=== PATIENT | male | born 1995 | race Caucasian/White ===

== ENCOUNTER 2022-05-21 08:17 | Inpatient (IN) ==
[2022-05-21] MEDS ORDERED: SODIUM CHLORIDE 0.9% 500 ML IV STA (08:34)
[2022-05-21] MEDS ORDERED: SODIUM CHLORIDE 0.9% 1000ML 1,000 ML IV ONE (08:39)
[2022-05-21] MEDS ORDERED: dilTIAZem HCl 5 MG/ML 5 ML VIAL IV STA (08:39)
--- NOTE | 2022-05-21 08:41 | Emergency Department Note ---
Impression & Plan Atrial fibrillation with rapid ventricular response ADMIT ED Provider Note HPI: The patient is a 26-year-old male who presents emergency department with a chief complaint of palpitations. Patient states that he woke up this morning and felt a sensation as if his heart was beating fast and irregularly. Patient denies any chest pain or shortness of breath. On arrival here to the ED the patient is noted to be in atrial fibrillation with a heart rate of 135, he is otherwise hemodynamically stable and saturating well on room air. Patient states he has not had any issues similar to this previously. 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 He admits to drinking a small amount of alcohol last night, states in general he does not binge drink. Arrival here to the ED the patient is tachycardic in the 130s but he is otherwise hemodynamically stable, denies any chest pain or shortness of breath. IV was established, lab work obtained, patient was placed on security system technician, patient was initially given a 15 mg bolus of diltiazem, this did result in good improvement of his rate into the 80s, he remained in atrial fibrillation. Patient was given IV fluids as well. Patient was observed while lab work resulted, troponin is negative, magnesium within normal limits, TSH within normal limits, potassium within normal limits. On my reassessment the patient remains in atrial fibrillation with rate now in the low 100s. I discussed the case with on-call cardiology, Dr. Ahn, recommended starting the patient on beta-gema therapy, recommends holding off on possible cardioversion at this time as the patient will be likely to spontaneously convert. Patient was given 5 mg bolus of metoprolol and rate did improve into the 80s once more. On my reassessment patient remains in atrial fibrillation now with good rate control, given that he remains in A. fib, I did discuss the case with the on-call hospitalist for [facility], Dr. Rocha, patient was admitted in stable condition for further care. * CRITICAL CARE TIME: ( 35 ) minutes -Management of tachyarrhythmia requiring IV medications for rate control, time spent at the bedside, interpretation of diagnostic studies, discussion with other physicians and arrangement of admission Diagnosis: 1. New onset atrial fibrillation 2. Atrial fibrillation with RVR Disposition: Admission Yvan Yu, Emergency Medicine Past Med/Surg History Surgical History History of total cystectomy History of wisdom tooth extraction Family History (Updated 10/07/21 @ 08:08 by Megan Mayer) Mother Stroke Prothrombin mutation Migraine Cat allergies Father Hypertension Thyroid disease Sister Prothrombin mutation Migraine Grandfather (Paternal) Lung cancer Other No family history of adverse response to anesthesia No family history of bleeding disorder Social History (Updated 10/07/21 @ 08:11 by Megan Mayer) Smoking Status: Never smoker Second Hand Exposure: No; Hx Alcohol Use: Yes Alcohol type: beer Alcohol Intake Frequency: 2-3 x/Week Alcohol Intake Frequency Comment: 2-3 drinks per week Hx Substance Use: No Visual Impairment: No Limitations Hearing Ability: Normal marital status: Single Current Living Situation: Significant Other Current Living Situation Comment: engaged-getting in February 26 current occupational status: employed 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 Happened when younger Home Meds Previous Rx's Medication Instructions Recorded azelastine 137 mcg (0.1 %) nasal 2 spray intranasal DAILY #30 mL 10/07/21 spray aerosol Results & Data (ED) Vital Signs Vital Signs - 24 hr 05/21/22 08:25 05/21/22 09:01 05/21/22 09:01 Temperature 36.8 C Temperature Source Temporal Artery Scan Pulse Rate 100 H Pulse Rate [Radial] Pulse Rhythm Pulse Rhythm [Radial] Pulse Strength [Radial] Respiratory Rate 16 Respiratory Effort / Characteristics Non-Labored Non-Labored Spontaneous Respiratory Depth Normal Normal Respiratory Pattern Regular Blood Pressure 119/75 Blood Pressure [Right Arm] Blood Pressure Mean 89 Blood Pressure Mean [Right Arm] Blood Pressure Position [Right Arm] Pulse Oximetry 98 98 Oxygen Delivery Method Room Air Room Air Room Air Sepsis Recent Fever Within 48 Hours No Sepsis New/Unexplained Change in Mental Status No Sepsis Action Taken by Nursing No Action Required 05/21/22 09:01 05/21/22 10:00 05/21/22 11:34 Temperature Temperature Source Pulse Rate 151 H 103 H Pulse Rate [Radial] 79 Pulse Rhythm Irregular Pulse Rhythm [Radial] Irregular Pulse Strength [Radial] Normal Respiratory Rate 20 16 Respiratory Effort / Characteristics Non-Labored Spontaneous Respiratory Depth Normal Respiratory Pattern Regular Blood Pressure 112/64 Blood Pressure [Right Arm] 114/73 Blood Pressure Mean Blood Pressure Mean [Right Arm] 86 Blood Pressure Position [Right Arm] Lying Pulse Oximetry 98 100 Oxygen Delivery Method Room Air Room Air Sepsis Recent Fever Within 48 Hours Sepsis New/Unexplained Change in Mental Status Sepsis Action Taken by Nursing Laboratory Data Result diagrams: 05/21/22 08:50 05/21/22 10:52 Lab Results 05/21/22 05/21/22 05/21/22 Range/Units 08:44 08:44 08:50 WBC 7.64 (4.8-10.8) K/ul RBC 5.13 (4.63-6.08) M/uL Hgb 15.4 (14.0-18.0) g/dl Hct 42.0 (40.1-51.0) % MCV 81.9 (80.0-100.0) fL MCH 30.0 (25.0-34.0) pg MCHC 36.7 H (32.0-36.0) g/dL RDW Std Deviation 34.3 L (36.4-46.3) fL RDW Coeff of [place] 11.6 (11.5-14.5) % Plt Count 279 (130-400) K/uL MPV 11.1 (9.4-12.4) fL Immature Gran % (Auto) 0.3 % Neut % (Auto) 46.0 % Lymph % (Auto) 41.5 % [place] % (Auto) 9.4 % Eos % (Auto) 2.0 % Baso % (Auto) 0.8 % Neut # (Auto) 3.52 (1.4-6.5) K/uL Lymph # (Auto) 3.17 (1.2-3.4) K/uL [place] # (Auto) 0.72 (0.24-0.82) K/uL Eos # (Auto) 0.15 (0-0.50) K/uL Baso # (Auto) 0.06 (0-0.2) K/uL Immature Gran # (Auto) 0.02 (0.00-0.02) K/uL Sodium TNP Potassium TNP Chloride 106 (98-107) mmol/L Carbon Dioxide 20 L (21-32) mmol/L Anion Gap TNP BUN 13 (6-23) mg/dl Creatinine 0.71 (0.6-1.4) mg/dl Est Cr Clr Drug Dosing 174.6 ml/min Est GFR ( Amer) > 150.0 ml/min Est GFR (Non-Af Amer) 130.4 ml/min BUN/Creatinine Ratio 18.3 (10-20) Glucose 106 H (70-99(Fasting)) mg/dl Calcium 10.0 (8.5-10.1) mg/dl Magnesium TNP Total Bilirubin 1.9 H (0.2-1.0) mg/dl AST TNP ALT 17 (7-52) U/L Alkaline Phosphatase 52 (34-104) U/L Troponin I High Sens 2.9 (0-20) pg/ml Total Protein 7.9 (6.0-8.3) gm/dl Albumin 5.1 H (3.4-5.0) gm/dl Globulin 2.8 (2.5-4.0) gm/dl Albumin/Globulin Ratio 1.8 (0.9-2) Lipase 18 (11-82) U/L TSH 1.357 (0.300-4.500) uIu/ml 05/21/22 Range/Units 10:52 WBC (4.8-10.8) K/ul RBC (4.63-6.08) M/uL Hgb (14.0-18.0) g/dl Hct (40.1-51.0) % MCV (80.0-100.0) fL MCH (25.0-34.0) pg MCHC (32.0-36.0) g/dL RDW Std Deviation (36.4-46.3) fL RDW Coeff of [place] (11.5-14.5) % Plt Count (130-400) K/uL MPV (9.4-12.4) fL Immature Gran % (Auto) % Neut % (Auto) % Lymph % (Auto) % [place] % (Auto) % Eos % (Auto) % Baso % (Auto) % Neut # (Auto) (1.4-6.5) K/uL Lymph # (Auto) (1.2-3.4) K/uL [place] # (Auto) (0.24-0.82) K/uL Eos # (Auto) (0-0.50) K/uL Baso # (Auto) (0-0.2) K/uL Immature Gran # (Auto) (0.00-0.02) K/uL Sodium 137 Potassium 4.7 Chloride (98-107) mmol/L Carbon Dioxide (21-32) mmol/L Anion Gap BUN (6-23) mg/dl Creatinine (0.6-1.4) mg/dl Est Cr Clr Drug Dosing ml/min Est GFR ( Amer) ml/min Est GFR (Non-Af Amer) ml/min BUN/Creatinine Ratio (10-20) Glucose (70-99(Fasting)) mg/dl Calcium (8.5-10.1) mg/dl Magnesium 1.7 Total Bilirubin (0.2-1.0) mg/dl AST 12 L ALT (7-52) U/L Alkaline Phosphatase (34-104) U/L Troponin I High Sens (0-20) pg/ml Total Protein (6.0-8.3) gm/dl Albumin (3.4-5.0) gm/dl Globulin (2.5-4.0) gm/dl Albumin/Globulin Ratio (0.9-2) Lipase (11-82) U/L TSH (0.300-4.500) uIu/ml Administered Medications Discontinued Medications Diltiazem HCl (Diltiazem Hcl 5 Mg/Ml 5 Ml Vial) 15 mg IV NOW STA Stop: 05/21/22 08:40 Last Admin: 05/21/22 08:48 Dose: 15 mg Documented By: CROW Co-signed By: STEPHENIE Sodium Chloride (Nss) 500 mls @ 999 mls/hr IV .Q31M STA Stop: 05/21/22 09:04 Last Infusion: 05/21/22 10:37 Dose: 0 mls/hr Documented By: Admin: 05/21/22 08:49 Dose: 999 mls/hr Documented By: CROW Sodium Chloride (Nss 1000ml) 1,000 mls @ 999 mls/hr IV .Q1H1M ONE Stop: 05/21/22 09:39 Last Infusion: 05/21/22 10:37 Dose: 0 mls/hr Documented By: Admin: 05/21/22 08:49 Dose: 999 mls/hr Documented By: RCOW Metoprolol Tartrate (Metoprolol Tartrate 1 Mg/Ml Vial) 5 mg IV NOW STA Stop: 05/21/22 11:27 Last Admin: 05/21/22 11:34 Dose: 5 mg Documented By: CROW Imaging Data Radiologist's Impression: Chest X-Ray 05/21/22 08:34 XR chest 1V portable CLINICAL HISTORY: Atypical chest pain. COMPARISON STUDY: No previous studies for comparison. FINDINGS: Lung volumes are normal. No consolidation is identified. Subtle density projects over the right lower lung There is no pneumothorax or pleural effusion. Cardiac size is normal. Mediastinal contours are normal. There is no evidence for pulmonary edema. IMPRESSION: 1. No acute cardiopulmonary findings. 2. Subtle density which projects over the right lower lung. Artifact is favored. ACT 112: Negative or not required by law. Electronically signed by: Aiden Valiente M.D. 05/21/2022 8:50 AM Discharge Plan Visit Data Chief Complaint: Shortness of Breath/Dyspnea Stated Complaint: AFIB, SOB ED Provider: Yvan Yu Discharge Problem: Atrial fibrillation with rapid ventricular response Patient Disposition: Admitted As Inpatient Forms Stand Alone Forms: [facility] Prescriptions Prescriptions: No Action azelastine 137 mcg (0.1 %) aerosol,spray 2 spray intranasal DAILY Qty: 30 3RF Referrals Referrals: Hayley Hidalgo MD [Primary Care Provider] -
--- NOTE | 2022-05-21 08:51 | XRay Report ---
XR chest 1V portable CLINICAL HISTORY: Atypical chest pain. COMPARISON STUDY: No previous studies for comparison. FINDINGS: Lung volumes are normal. No consolidation is identified. Subtle density projects over the r ight lower lung There is no pneumothorax or pleural effusion. Cardiac size is normal. Mediastinal con tours are normal. There is no evidence for pulmonary edema. IMPRESSION: 1. No acute cardiopulmonary findings. 2. Subtle density which projects over the right lower lung. Artifact is favored. ACT 112: Negative or not required by law. Electronically signed by: Aiden Valiente M.D. 05/21/2022 8:50 AM
[2022-05-21 09:07] LABS: Basophils # (auto) 0.06 K/uL (0-0.2); Basophils % (auto) 0.8 %; Eosinophils # (auto) 0.15 K/uL (0-0.50); Hemoglobin 15.4 g/dl (14.0-18.0); Immature Granulocytes # (auto) 0.02 K/uL (0.00-0.02); Immature Granulocytes % (auto) 0.3 %; Lymphocytes # (auto) 3.17 K/uL (1.2-3.4); Lymphocytes % (auto) 41.5 %; Mean Corpuscular Hgb Conc 36.7 g/dL (32.0-36.0); Mean Corpuscular Volume 81.9 fL (80.0-100.0); Mean Platelet Volume 11.1 fL (9.4-12.4); Monocytes # (auto) 0.72 K/uL (0.24-0.82); Monocytes % (auto) 9.4 %; Neutrophils # (auto) 3.52 K/uL (1.4-6.5); Platelet Count 279 K/uL (130-400); RDW Coefficient of Variation 11.6 % (11.5-14.5); RDW Standard Deviation 34.3 fL (36.4-46.3); Red Blood Count 5.13 M/uL (4.63-6.08); White Blood Count 7.64 K/ul (4.8-10.8)
[2022-05-21 10:33] LABS: Alanine Aminotransferase 17 U/L (7-52); Albumin Globulin Ratio 1.8 (0.9-2); Albumin Level 5.1 gm/dl (3.4-5.0); Alkaline Phosphatase 52 U/L (34-104); BUN Creatinine Ratio 18.3 (10-20); Bilirubin,Total 1.9 mg/dl (0.2-1.0); Blood Urea Nitrogen 13 mg/dl (6-23); Carbon Dioxide 20 mmol/L (21-32); Chloride 106 mmol/L (98-107); Creatinine Clr Calc Pharmacy 174.6 ml/min; Est GFR (African American) > 150.0 ml/min; Est GFR (Non-African American) 130.4 ml/min; Globulin 2.8 gm/dl (2.5-4.0); Glucose 106 mg/dl (70-99(Fasting)); Lipase 18 U/L (11-82); Total Protein 7.9 gm/dl (6.0-8.3)
[2022-05-21 11:14] LABS: Troponin I High Sensitivity 2.9 pg/ml (0-20)
[2022-05-21 11:22] LABS: Magnesium 1.7 mg/dl (1.7-2.4); Potassium 4.7 mmol/L (3.5-5.1)
[2022-05-21] MEDS ORDERED: METOPROLOL TARTRATE 1 MG/ML VIAL IV STA (11:26)
--- NOTE | 2022-05-21 12:04 | History & Physical Report ---
Date of Service May 21, 2022 Assessment & Plan (1) Atrial fibrillation with rapid ventricular response: Plan: - Symptom onset of palpitations, mild shortness of breath at 745 this a.m., a fib RVR detected by his apple watch. Patient was wearing an apple watch thr oughout the night last evening and at no point did it detect A. fib until this morning, so safe to say he has been in afib < 24 hours. - Present on initial eval in ED with HR 130-150s, now with HR [id number], remains in A. fib. - Did receive 15 mg IV diltiazem, and 70 g IV Lopressor in ED. - No apparent causes--only 1 alcoholic drink last evening and no history of alcohol use disorder, no infectious process or acute illness, electrolytes wnl, TSH wnl, no history of ADDY. - Who do hypercoagulable work-up given his family history of prothrombin gene mutation. - Will start patient on 25 mg metoprolol BID for now. - Lopressor 5mg IV prn ordered for HR > 120. - Will order K and Mg replacement to get K of 4.0, Mg 2.0. - Echo ordered. - Will start on Eliquis with first dose to be given in ED. - Should be d/c'd with 30 day mobile cardiac monitoring and to remain on anticoagulation until monitoring is complete and hypercoagulable panel has resulted. (2) Nasal septal deviation: Plan: - Continue azelastine nasal spray. (3) Family history of prothrombin gene mutation: Plan: - Hypercoag workup as above. Plan - Observation oernight in PCU. - SCDs, Eliquis for VTE ppx. - Full Code. History of Present Illness Chief Complaint: palpitations since 7:45 this AM Primary Care Provider: Hayley Hidalgo MD Ted Denson is a 26-year-old male with past medical history significant deviated nasal septum and family history of prothrombin gene mutation presenting today with complaints of palpitations. Last evening he went out to dinner with his and had 1 beer, later went home and played video games and felt he was in his normal state of health. No further alcohol consumption. This morning he woke up around 7:45 AM immediately felt a sensation of his heart racing. He wears an apple watch and did an ECG tracing which revealed he was in A. fib with HR of 150s at home. He presented to the ED for further evaluation and was found to be in A. fib RVR with rates in 130s. He was wearing his apple watch last evening and at no point did indicate he was in A. fib until this morning, so it is unlikely patient has been in A. fib for >24 hours. Is a family history of prothrombin gene mutation and his mom and sister, states his mom has had mini strokes and recently hospitalized for A. fib herself. He was supposed to have an outpatient hypercoagulability work-up done, but has not gotten around to doing this yet. He has not noticed any focal neurological deficits such as numbness weakness tingling, visual changes, or slurred speech. No prior history of A. fib, or other cardiac disease. Denies tobacco or drug use. - Other than being in A. fib RVR, his VS are wnl, he is hemodynamically stable, labs are completely unremarkable, his T bili is elevated at 1.9, no prior labs for reference. TSH within normal limits, no electrolyte abnormalities, without leukocytosis, troponin 2.9. Allergies Allergy/AdvReac Type Severity Reaction Status Date / Time amoxicillin AdvReac pt Verified 10/07/21 08:02 forgets. Happened when younger Home Medications Medication Instructions Recorded Confirmed Type azelastine 137 mcg (0.1 %) nasal 2 spray intranasal DAILY #30 mL 10/07/21 10/07/21 Rx spray aerosol Past Med/Surg History Medical History Hypertrophy of both inferior nasal turbinates Nasal septal deviation Surgical History History of wisdom tooth extraction Hx of removal of cyst Family History Mother Stroke Prothrombin mutation Migraine Cat allergies Father Hypertension Thyroid disease Sister Prothrombin mutation Migraine Grandfather (Paternal) Lung cancer Other No family history of adverse response to anesthesia No family history of bleeding disorder Social History Smoking Status: Never smoker Second Hand Exposure: No; Hx Alcohol Use: Yes Alcohol type: beer Alcohol Intake Frequency: 2-3 x/Week Alcohol Intake Frequency Comment: 2-3 drinks per week Hx Substance Use: No Visual Impairment: No Limitations Hearing Ability: Normal marital status: Single Current Living Situation: Significant Other Current Living Situation Comment: engaged-getting in February 26 current occupational status: employed 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 Safe at Home: Yes Childhood Exposure to Second-Hand Smoke: No Dental Care, Regularly: No Physical Activity Frequency: 3-4 Times per Week Seatbelt Use: always Sunscreen Use: Yes Review of Systems Review of Systems: Constitutional: No fever/chills, weakness, fatigue, myalgias, anorexia, night sweats Eyes: No diplopia, no worsening or blurred vision ENT: normal hearing, no trouble swallowing Respiratory: Mild shortness of breath with palpitations this a.m., now resolved; no cough, sputum production Cardiovascular: Palpitations since 745 this a.m.; now resolved; no chest pain, tightness Abdomen: No pain, nausea, vomiting, diarrhea or constipation : Denies dysuria, hematuria, increased urgency/frequency, urinary retention Musculoskeletal: No joint pain, calf pain, swelling Neurologic: No weakness, numbness/tingling, or balance problems Psychiatric: No anxiety or depression Skin: No rash or itch Physical Exam Physical Exam: General: awake, alert, no apparent distress Head: Normocephalic, atraumatic ENT: PERRL, EOMI, no pharyngeal exudate, mucous membranes moist Chest: Clear to auscultation, on room air, no adventitious breath sounds Cardiac: Regular rate and rhythm, no murmur, no JVD, normal peripheral pulses, good capillary refill Abdominal: NABS x 4 quadrants, soft, nontender to palpation, no rebound, guarding or tenderness Extremities: Normal inspection, no peripheral edema or erythema, calfs nontender to palpation Psych: Normal mood and affect Neuro: AAO x 3, strength intact bilaterally and rated 5/5, no motor deficits, speech is clear, no peripheral sensory deficits Skin: no rash or erythema Results & Data Results & Data ([facility]) Vital Signs (Past 12 Hours) Vital Signs Temp Pulse Pulse Resp BP BP Pulse Ox 05/21/22 11:34 103 H 112/64 05/21/22 10:00 79 16 114/73 100 05/21/22 09:01 151 H 20 98 05/21/22 09:01 98 05/21/22 09:01 05/21/22 08:25 36.8 C 100 H 16 119/75 98 O2 Del Method 05/21/22 11:34 05/21/22 10:00 Room Air 05/21/22 09:01 Room Air 05/21/22 09:01 Room Air 05/21/22 09:01 Room Air 05/21/22 08:25 Room Air Laboratory Results Abnormal lab results 05/21/22 05/21/22 05/21/22 Range/Units 08:44 08:50 10:52 MCHC 36.7 H (32.0-36.0) g/dL RDW Std Deviation 34.3 L (36.4-46.3) fL Carbon Dioxide 20 L (21-32) mmol/L Glucose 106 H (70-99(Fasting)) mg/dl Total Bilirubin 1.9 H (0.2-1.0) mg/dl AST 12 L (13-39) U/L Albumin 5.1 H (3.4-5.0) gm/dl Diagnostic Findings Chest X-Ray 05/21/22 08:34 XR chest 1V portable CLINICAL HISTORY: Atypical chest pain. COMPARISON STUDY: No previous studies for comparison. FINDINGS: Lung volumes are normal. No consolidation is identified. Subtle density projects over the right lower lung There is no pneumothorax or pleural effusion. Cardiac size is normal. Mediastinal contours are normal. There is no evidence for pulmonary edema. IMPRESSION: 1. No acute cardiopulmonary findings. 2. Subtle density which projects over the right lower lung. Artifact is favored. ACT 112: Negative or not required by law. Electronically signed by: Aiden Valiente M.D. 05/21/2022 8:50 AM ECG Additional Comments: Atrial fibrillation with rapid ventricular response with premature ventricular or aberrantly conducted complexes Indeterminate axis Incomplete right bundle branch block Abnormal ECG No previous ECGs available. Code Status & VTE Plan Code Status Full Code. Supervising Physician Co-Signing Physician Notes Patient seen and examined, chart reviewed, case discussed with Claritza Kirkland PA-C and I agree with the assessment and plan as above except as otherwise noted Labs and images reviewed 26-year-old male with a family history of hypercoagulopathy who presents with A. fib and RVR, no prior episodes. Patient notes his apple watch was normal yesterday, thinks he just started an abnormal rhythm today. No prior blood clots. Patient had a bachelor constitution party last month, otherwise reports rare social drinking and has only had 1 alcoholic drink over the weekend. No fever, chills, sweats or recent illness. Rate improved following initial dose of diltiazem, but remains in A. fib. Lungs are clear, skin is warm and dry. Patient nondistressed on exam. Given history of hypercoagulability and A. fib will start on Eliquis at this time. Continue metoprolol. Hypercoagulable panel ordered. Given if patient converts recommend mobile telemetry as outpatient to quantify burden, especially given family history of prothrombin mutation. Echo pending. Lyme pending. Agree with management above. PG Care Time/CCT Total # of Minutes Spent Total Time Spent with Patient: Total time spent is greater than 50% in coordination of care (as documented) at patient's floor/unit and/or counseling patient: Coding Level of Care Code 01493 Initial Inpt Care Lvl 3 Diagnoses Atrial fibrillation with rapid ventricular response I48.91 Nasal septal deviation J34.2 Family history of prothrombin gene mutation Z83.2
[2022-05-21] MEDS ORDERED: APIXABAN 5 MG TABLET PO STA (12:06)
[2022-05-21] MEDS ORDERED: LACTATED RINGER'S 1,000 ML IV SCH (12:15)
[2022-05-21] MEDS: MAGNESIUM SULFATE / D5W 1 GM/100 ML BAG IV SCH ×2 (12:33→15:27)
[2022-05-21 13:55] LABS: Lyme Ab IgG w/WB Rflx Negative (Negative); Lyme Ab IgM w/WB Rflx Negative (Negative)
[2022-05-21] MEDS ORDERED: ONDANSETRON INJ 2 MG/ML 2 ML VIAL IV PRN (15:21)
[2022-05-21] MEDS ORDERED: METOPROLOL TARTRATE 1 MG/ML VIAL IV PRN (15:21)
[2022-05-21] MEDS ORDERED: ALUMINUM/MAGNESIUM SUSP 30 ML UDC PO PRN (15:21)
[2022-05-21] MEDS ORDERED: ACETAMINOPHEN 325 MG TAB PO PRN (15:21)
--- NOTE | 2022-05-21 15:23 | Electrocardiogram Report ---
Test Reason : Blood Pressure : / mmHG Vent. Rate : 135 BPM Atrial Rate : 104 BPM P-R Int : 000 ms QRS Dur : 094 ms QT Int : 262 ms P-R-T Axes : 000 000 045 degrees QTc Int : 393 ms Atrial fibrillation with rapid ventricular response with premature ventricular or aberrantly conducte d complexes Indeterminate axis Incomplete right bundle branch block Abnormal ECG No previous ECGs available Confirmed by Anastacio Ahn ([id number]) on 05/21/2022 3:23:29 PM Referred By: Confirmed By:Anastacio Ahn
--- NOTE | 2022-05-21 16:22 | XCELERA ---
[id number]
[2022-05-21] MEDS ORDERED: FLUARIX QUADRIVALENT 0.5 ML SYR IM ONE (18:00)
[2022-05-21] MEDS: METOPROLOL TARTRATE 25 MG TAB PO SCH (20:58)
[2022-05-21] MEDS: APIXABAN 5 MG TABLET PO SCH (20:59)
[2022-05-22 07:43] LABS: Creatinine Clr Calc Pharmacy 133.3 ml/min; Est GFR (African American) 131.8 ml/min; Est GFR (Non-African American) 113.7 ml/min
[2022-05-22] MEDS: METOPROLOL TARTRATE 25 MG TAB PO SCH (08:45)
[2022-05-22] MEDS: APIXABAN 5 MG TABLET PO SCH (08:45)
[2022-05-22] MEDS ORDERED: AZELASTINE HCL 0.1% NASAL 200 SPRAYS/27,400 MCG BTL SCH ×2 (09:00)
[2022-05-22 09:29] LABS: Albumin Level 4.5 gm/dl (3.4-5.0); BUN Creatinine Ratio 12.8 (10-20); Bilirubin,Total 2.5 mg/dl (0.2-1.0); Calcium 9.6 mg/dl (8.5-10.1); Creatinine Clr Calc Pharmacy 131.9 ml/min; Est GFR (African American) 130.1 ml/min; Est GFR (Non-African American) 112.2 ml/min; Globulin 2.2 gm/dl (2.5-4.0); Potassium 4.1 mmol/L (3.5-5.1); Total Protein 6.7 gm/dl (6.0-8.3)
--- NOTE | 2022-05-22 11:12 | Electrocardiogram Report ---
Test Reason : Blood Pressure : / mmHG Vent. Rate : 083 BPM Atrial Rate : 083 BPM P-R Int : 156 ms QRS Dur : 090 ms QT Int : 346 ms P-R-T Axes : 075 060 045 degrees QTc Int : 406 ms Normal sinus rhythm Incomplete right bundle branch block Normal ECG When compared with ECG of 21-MAY-2022 08:33, Sinus rhythm has replaced Atrial fibrillation Vent. rate has decreased BY 52 BPM Confirmed by Damian Martinez ([id number]) on 05/22/2022 11:12:09 AM Referred By: REFERRED SELF Confirmed By:Damian Martinez
--- NOTE | 2022-05-22 11:15 | Electrocardiogram Report ---
Test Reason : Blood Pressure : / mmHG Vent. Rate : 063 BPM Atrial Rate : 063 BPM P-R Int : 148 ms QRS Dur : 104 ms QT Int : 408 ms P-R-T Axes : 014 029 027 degrees QTc Int : 417 ms Normal sinus rhythm Incomplete right bundle branch block Borderline ECG When compared with ECG of 21-MAY-2022 18:38, No significant change was found Confirmed by Damian Martinez ([id number]) on 05/22/2022 11:15:36 AM Referred By: REFERRED SELF Confirmed By:Damian Martinez
--- NOTE | 2022-05-22 11:55 | Cardiology Consultation ---
Date of Consultation May 22, 2022 Assessment & Plan (1) New onset atrial fibrillation: (2) Family history of prothrombin gene mutation: Plan Healthy 26-year-old with new onset atrial fibrillation without obvious precipitating factor (borderline low magnesium only). Cardiac exam and echocardiogram unremarkable. Recommend low-dose beta-gema, discharge on metoprolol succinate 25 mg daily. Will reassess in 3 to 4 weeks, if he has no recurrent atrial fibrillation would consider changing his beta-gema to a "pill in the pocket" as needed medication. With a [id number] or of 0 and the ability to closely monitor for recurrent atrial fibrillation (Apple watch), would not recommend anticoagulation at this time. However, he should have the prothrombin gene testing to better assess his thrombotic risk in the future. Discussed the pathophysiology and management of atrial fibrillation with the patient and his family. Questions answered. Okay for discharge, cardiology follow-up in 3 to 4 weeks (will arrange). History of Present Illness Reason for Consultation: Paroxysmal atrial fibrillation Requesting Physician: Angel Wagner MD Attending Physician: Angel Wagner MD History of Present Illness Healthy 26-year-old man with no prior cardiac history who was admitted 05/21/2022 with new onset atrial fibrillation with rapid ventricular response. No identifiable precipitating factors, he had 1 alcoholic beverage the evening before and drinks 1 coffee daily. When he awoke yesterday morning he noted a sense of tachypalpitations and his Apple watch showed atrial fibrillation with rate of up to 150 bpm. No chest pain, dyspnea, lightheadedness, or any other associated symptoms. ECG showed no ST abnormalities and troponin was negative. TSH and potassium were normal, magnesium was low normal (1.7). He received IV metoprolol and his rhythm reverted to sinus yesterday. He has remained in sinus rhythm overnight. There is a family history of prothrombin gene abnormality with associated thrombotic phenomenon. The patient had not been genetically tested. He had no complaints this morning. Allergies Allergy/AdvReac Type Severity Reaction Status Date / Time amoxicillin AdvReac pt Verified 10/07/21 08:02 forgets. Happened when younger Home Medications Medication Instructions Recorded Confirmed Type azelastine 137 mcg (0.1 %) nasal 2 spray intranasal DAILY #30 mL 10/07/21 10/07/21 Rx spray aerosol Patient History Medical History Hypertrophy of both inferior nasal turbinates Nasal septal deviation Surgical History History of wisdom tooth extraction Hx of removal of cyst Family History Mother Stroke Prothrombin mutation Migraine Cat allergies Father Hypertension Thyroid disease Sister Prothrombin mutation Migraine Grandfather (Paternal) Lung cancer Other No family history of adverse response to anesthesia No family history of bleeding disorder Social History Smoking Status: Never smoker Second Hand Exposure: No; Hx Alcohol Use: Yes Alcohol type: beer, wine and hard liquor Alcohol Intake Frequency: 2-3 x/Week Alcohol Intake Frequency Comment: 2-3 drinks per week Hx Substance Use: No Preferred Language: Israeli Communication Ability: Effective Visual Impairment: No Limitations Hearing Ability: Normal Mosaic 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 BP normotensive. Pulse 57 bpm and regular. Skin: no ecchymoses or generalized lesions. HEENT: unremarkable. Neck: no JVD or carotid bruits. Lungs: clear. Cardiac: regular rhythm, no murmur or gallop. Abdomen: benign. Extremities: no edema, pulses intact. Neurologic: normal affect, nonfocal. Results & Data ([facility]) Vital Signs (Past 12 Hours) Vital Signs Temp Pulse Pulse Resp BP Pulse Ox O2 Del Method 05/22/22 10:47 97.7 F 57 L 20 112/71 97 Room Air 05/22/22 07:55 97.9 F 84 20 123/70 98 Room Air 05/22/22 07:04 58 L Diagnostic Findings Initial ECG showed atrial fibrillation with ventricular rate of 135 bpm, incomplete right bundle branch block. Subsequent ECG showed sinus rhythm. No ST deviation or QT prolongation. Echocardiogram was completely unremarkable. Chest x-ray with no acute findings. PG Care Time/CCT Total # of Minutes Spent Total Time Spent with Patient: Total time spent is greater than 50% in coordination of care (as documented) at patient's floor/unit and/or counseling patient: Coding Level of Care Code 32104 Inpt Consult Level 4 Diagnoses New onset atrial fibrillation I48.91 Family history of prothrombin gene mutation Z83.2
--- NOTE | 2022-05-22 15:39 | Discharge Summary ---
Date of Service May 22, 2022 Admission HPI Per Admitting Provider Ted Denson is a 26-year-old male with past medical history significant deviated nasal septum and family history of prothrombin gene mutation presenting today with complaints of palpitations. Last evening he went out to dinner with his and had 1 beer, later went home and played video games and felt he was in his normal state of health. No further alcohol consumption. This morning he woke up around 7:45 AM immediately felt a sensation of his heart racing. He wears an apple watch and did an ECG tracing which revealed he was in A. fib with HR of 150s at home. He presented to the ED for further evaluation and was found to be in A. fib RVR with rates in 130s. He was wearing his apple watch last evening and at no point did indicate he was in A. fib until this morning, so it is unlikely patient has been in A. fib for >24 hours. Is a family history of prothrombin gene mutation and his mom and sister, states his mom has had mini strokes and recently hospitalized for A. fib herself. He was supposed to have an outpatient hypercoagulability work-up done, but has not gotten around to doing this yet. He has not noticed any focal neurological deficits such as numbness weakness tingling, visual changes, or slurred speech. No prior history of A. fib, or other cardiac disease. Denies tobacco or drug use. - Other than being in A. fib RVR, his VS are wnl, he is hemodynamically stable, labs are completely unremarkable, his T bili is elevated at 1.9, no prior labs for reference. TSH within normal limits, no electrolyte abnormalities, without leukocytosis, troponin 2.9. Principal Diagnosis Paroxysmal afib Discharge Exam CV: RRR no m/r/g RR: CTA b/l Discharge Data Allergies Allergy/AdvReac Type Severity Reaction Status Date / Time amoxicillin AdvReac pt Verified 10/07/21 08:02 forgets. Happened when younger Consultations 05/21/22 12:01 ED Decision to Admit Stat 05/22/22 08:44 Consult Cardiology Routine Hospital Course (1) Atrial fibrillation with rapid ventricular response: - Symptom onset of palpitations, mild shortness of breath at 745 this a.m., a fib RVR detected by his apple watch. Patient was wearing an Apple watch throughout the night last evening and at no point did it detect A. fib until this morning, so safe to say he has been in afib < 24 hours. - No apparent causes--only 1 alcoholic drink last evening and no history of alcohol use disorder, no infectious process or acute illness, electrolytes wnl, TSH wnl, no history of ADDY. - Converted on his own in <24 hours. - Echo on 05/21 showed normal EF, no valvular issues. No ASD. - Seen by cardiology. No anticoagulation given CHADs-VASc of 0. Will use Toprol XL daily x 1 month, then if no further afib, will keep "pill in pocket" after that. If he has further episodes of afib, will consider chronic beta-gema and anticoagulation at that time. (2) Family history of prothrombin gene mutation: Hypercoag work-up ordered as mother and sister both have prothrombin gene mutation. Despite this, would not pursue anticoagulation unless he has recurrent afib. - Ordered for patient. Pending on discharge. (3) Nasal septal deviation: - Continue azelastine nasal spray. Total Time Total Time Spent Total Time Spent (In Minutes): 45 Discharge Plan Discharge Items Patient Disposition: Home - Self-Care Reason For Visit: NEW ONSET AFIB WITH RVR Discharge Diagnosis: Paroxysmal atrial fibrillation Activity: Resume your previous activity Non-emergency contact: Primary Care Provider and Communications Maintainer Call non-emergency contact if: your symptoms worsen Follow-up/Referrals: Damian Martinez MD [Physician] - 06/17/22 2:15 pm (Please see Dr. Martinez in his office in 3-4 weeks.) Hayley Hidalgo MD [Primary Care Provider] - 06/03/22 10:20 am Diet: Regular Addtl Attending Provider Instructions: Mr. Denson, You were admitted to the hospital with an episode of atrial fibrillation which luckily lasted a fairly short amount of time. Without much help, your heart went back into the normal "sinus" rhythm on its own. Dr. Martinez saw you and recommended continuing metoprolol on discharge to help keep your heart in a normal range should you go back into atrial fibrillation. If you do not have any more episodes, you should be able to stop this medication in 3-4 weeks. We have your hypercoagulable work-up still pending on discharge. Dr. Martinez should be able to discuss the results of this testing with you when you see him next. At this time, it does not change our management in regards to anticoagulation, but it might lead us to start it if you keep having episodes of afib. Again, this is something to discuss with Dr. Martinez. Pending Studies at Discharge: Yes Studies:: Hypercoaguable work-up Stand-Alone Forms: My [facility], Smoking Cessation Medications and DC Order Prescriptions: New metoprolol succinate 25 mg tablet extended release 24 hr 25 mg PO DAILY Qty: 30 1RF Continued azelastine 137 mcg (0.1 %) aerosol,spray 2 spray intranasal DAILY Qty: 30 3RF Discharge Orders: Discharge Order (Routine); Ordered 05/22/22 Ordered By: Angel Joshi/Other Patient Handouts: AFib Dc Admission Data Admit Date/Time: 05/21/22 13:30 Attending Provider: Angel Wagner Admit Provider: Jose Luis Rocha Primary Care Provider: Hayley Hidalgo Other Providers: Jose Luis Rocha ; Damian Martinez Other Interventions: Discharge Summary Assessment (RN) Last Done: 05/22/22 12:42 Coding Level of Care Code D/C DAY MANAGEMENT >30 MINS Diagnoses Atrial fibrillation with rapid ventricular response I48.91 Family history of prothrombin gene mutation Z83.2 Nasal septal deviation J34.2
[2022-05-26 06:49] LABS: B2 Glycoprotein IgG <2.0 U/mL (<20.0); B2 Glycoprotein IgM <2.0 U/mL (<20.0); Protein S Functional(Activity) 101 % normal (70-150)
[2022-05-27 07:37] LABS: Anti Cardiolipin Ab IgG <2.0 GPL-U/mL; Anti Cardiolipin Ab IgM <2.0 MPL-U/mL; Anti-Thrombin III Activity 112 % normal (80-135); PTT LA Screen 33 sec (<=40)
[2022-05-29 19:02] LABS: Factor 5 Mutation NEGATIVE
== END 2022-05-22 13:54 | disposition home or self-care (01) | DRG 310 ==
LOC: ED 08:17 → 2S 13:30 → SUATTDRO 13:30 → 2S 15:00